=== PATIENT | female | born 1965 | race Caucasian/White ===

== ENCOUNTER 2018-11-07 02:46 | Inpatient (IN) | payer MEDICAID ==
--- NOTE | 2018-11-01 08:17 | NUR ---
CONSULTED DR. CHING REGARDING SUBOXONE MEDICATION, PER DR. CHING, PT NEEDS TO BE OFF SUBOXONE COMPLETELY 72 HOURS PRIOR TO SURGERY DATE OF Wednesday11/07/18, I HAVE BEEN IN CONTACT WITH [facility] AND HAVE LEFT A VOICEMAIL FOR [facility] IN [place] WHO IS IN CHARGE OF THE PATIENTS SUBOXONE PRESCRIPTION. WAITING ON A RESPONSE AND THEN WILL CALL [facility] BACK AND GET IN CONTACT WITH THE PT IN REGARDS TO APPROPRIATE INSTRUCTIONS
--- NOTE | 2018-11-01 08:22 | NUR ---
SPOKE WITH RINA FROM [facility], PT WAS INSTRUCTED TO GET IN CONTACT WITH PROVIDER REGARDING SUBOXONE, AGREED TO LET [facility] INITIATE INSTRUCTIONS ON TAPERING/STOPPING SUBOXONE PRIOR TO SURGERY, [facility] UNSURE IF PT IS CLEARED FOR SURGERY, WILL CONTINUE TO BE IN CONTACT WITH LYNNE AT [facility]
--- NOTE | 2018-11-01 15:18 | NUR ---
CONTACTED DR. COLON AT [facility] IN [place], HE ADVISES THAT THE PT TO CONTINUE THE SUBOXONE, INFORMED HIM THAT I FEEL HE SHOULD SPEAK WITH THE ANESTHESIOLOGIST AND GAVE HIM DR. YATES'S CONTACT INFORMATION, SPOKE WITH DR. YATES WHO SPOKE WITH DR. SIMMONS, THEY CAME TO AGREEMENT THAT PT WAS TO CONTINUE SUBOXONE. CONTACTED LYNNE AT & AND DISCUSSED THIS AND LYNNE WAS INFORMED PT WILL CONTINUE SUBOXONE. 1524- ATTEMPTED TO CONTACT PT TO UPDATE HER ON CHANGES, PT DID NOT ANSWER AND NO VM IS SET UP, WILL CONTINUE TO TRY AND ASKED LYNNE FROM & TO ATTEMPT CONTACTING HER PER THIS MEDICATION CHANGE.
--- NOTE | 2018-11-01 16:15 | NUR ---
1615- SPOKE WITH PT, PT SPOKE WITH DR. VILLASEÑOR AND WILL CONTINUE SUBOXONE PER HIS INSTRUCTIONS, PT VERBALIZED UNDERSTANDING, ALSO ADVISED PT TO TAKE 1ST DOSE OF GABAPENTIN MORNING OF SURGERY SHE REFUSES TO TAKE LYRICA, PT INQUIRES ABOUT A SHEET SORTER PUMP; ADVISED PT TO SPEAK WITH DR. CAUSEY ON WEDNESDAY REGARDING PAIN MANAGEMENT WHILE IN THE HOSPITAL. PT VERBALIZED UNDERSTANDING.
--- NOTE | 2018-11-01 16:20 | NUR ---
1561- PT ALSO VERBALIZED FINANCIAL DIFFICULTIES AND THE POTENTIAL TO CANCER OR RESCHEDULE SURGERY, ADVISED PT TO CONTACT DR. CAUSEY'S OFFICE IN REGARDS TO THAT SPOKE WITH LYNNE AT [facility] AND UPDATE THAT I MADE CONTACT WITH LYNNE THE PT.
--- NOTE | 2018-11-01 16:22 | NUR ---
WAS ADVISED TO BE AWARE OF OPEN NONHEALING WOUNDS TO PT'S BILATERAL FEET, WILL MAKE NOTE ON CHART FOR PREOP NURSES TO ASSESS
[2018-11-06 15:13] LABS: PLATELET COUNT, AUTOMATED 263 K/uL (150-450)
[2018-11-06 15:23] LABS: INR 0.86
[~2018-11-07] VITALS: Ht 170.2 cm; Wt 102.5 kg
[2018-11-07] VITALS (13 sets, daily range): BP systolic 124–160; BP diastolic 68–82
[~2018-11-07 02:46] MED LIST: ALBU8.5H IH; ASPI-1471 PO; BUPR1FIL SL; BUSP15TA69 PO; CYCL10TA29 PO; DULO60CA56 PO; FLUT16SP19 NS; GABA-549 PO; INSU100I28 SQ; INSU100I30 SQ; ONDA-2 PO; PANT40TA65 PO; PRAZ2CAP26 PO; SIMV-54 PO; TRAZ100T31 PO
[2018-11-07] MEDS ORDERED: fentaNYL CITR 250 MCG/5 ML AMP ONE (08:26)
[2018-11-07] MEDS ORDERED: ONDANSETRON 4 MG/2 ML VIAL ONE (08:33)
[2018-11-07] MEDS ORDERED: LIDOCAINE MPF 1% 5 ML VIAL ONE (08:33)
[2018-11-07] MEDS ORDERED: PROPOFOL(*)1000 MG/100 ML VIAL 100 ML ONE (08:37)
[2018-11-07] MEDS ORDERED: REMIFENTANIL HCL 1 MG VIAL ONE ×2 (08:38→13:08)
[2018-11-07] MEDS ORDERED: NS 0.9% 20 ML SDV 20 ML ONE (08:48)
[2018-11-07] MEDS ORDERED: THROMBIN (BOVINE) 20,000 UNIT VIAL ONE (09:36)
[2018-11-07] MEDS ORDERED: CLINDAMYCIN(*) 900 MG/NS 50 ML 50 ML IVPB ONE (09:55)
[2018-11-07] MEDS ORDERED: LIDOCAINE/SOD BICARB 8.4% SYR ID ONE (09:55)
[2018-11-07] MEDS ORDERED: MIDAZOLAM 2 MG/2 ML VIAL IVP PRN (09:55)
[2018-11-07] MEDS ORDERED: NORMOSOL R SOLN(*) 1000 ML BAG 1,000 ML IV PRN (09:55)
[2018-11-07] MEDS ORDERED: NS(*) 0.9% 500 ML BAG 500 ML ONE (10:12)
[2018-11-07] MEDS ORDERED: KETAMINE HCL 200 MG/20 ML MDV ONE (10:58)
[2018-11-07] MEDS ORDERED: ACETAMINOPHEN(*)1000 MG/100 ML 100 ML IVPB ONE (11:36)
[2018-11-07] MEDS ORDERED: PROPOFOL EMUL(*) 10MG/ML 20 ML 20 ML ONE ×2 (11:57→13:32)
[2018-11-07] MEDS ORDERED: HYDROmorphone HCL 2 MG/ML SDV ONE (12:01)
[2018-11-07] MEDS ORDERED: ePHEDrine 25 MG/5 ML DISP.SYR IVP ONE (12:01)
[2018-11-07] MEDS ORDERED: PROPOFOL EMUL(*) 10MG/ML 20 ML 40 ML ONE (12:45)
[2018-11-07] MEDS ORDERED: LABETALOL HCL 20 MG/4 ML SYR ONE (13:02)
--- NOTE | 2018-11-07 13:50 | RADIOLOGY IMAGING REPORT ---
FACILITY: [facility] [place] PATIENT NAME: Ailyn Olmedo : 1965 MR: [id number] V: [id number] EXAM DATE: ORDERING PHYSICIAN: JACKIE CAUSEY TECHNOLOGIST: [place] [facility] [place]n Olmedo : 1965 Visit/Account:[id number] Date of Sevice: 11/07/2018 CERVICAL SPINE 2 OR 3 VIEW Indication: C5-7 DISC HERNIATION/FUSION Comparison: None. Findings: Intraoperative images are available, with instrumentation hardware at the level of the C5-6 cervical disc level. IMPRESSION: Intraoperative images from surgery at the C5-6 level. Report Dictated By: Jacinto Potts at 11/07/2018 1:44 PM Report E-Signed By: Jacinto Potts at 11/07/2018 1:44 PM WSN:[email or web address]
[2018-11-07] MEDS ORDERED: ONDANSETRON 4 MG/2 ML VIAL IVP PRN (14:15)
[2018-11-07] MEDS ORDERED: HYDROmorphone HCL 2 MG/ML SDV IVP PRN (14:15)
[2018-11-07] MEDS ORDERED: ACETAMINOPHEN 500 MG TAB PO PRN (14:15)
[2018-11-07] MEDS ORDERED: BENZOCAINE/MENTHOL 1 EACH LOZG PO PRN (14:15)
[2018-11-07] MEDS ORDERED: BISACODYL 10 MG SUPP PR PRN (14:15)
[2018-11-07] MEDS ORDERED: FLUSH 10 ML SYR IVP PRN (14:15)
[2018-11-07] MEDS ORDERED: LR(*) 1000 ML BAG 1,000 ML IV PRN (14:15)
[2018-11-07] MEDS ORDERED: ACETAMINOPHEN(*)1000 MG/100 ML 100 ML IVPB PRN (14:15)
[2018-11-07] MEDS ORDERED: diphenhydrAMINE 25 MG CAP PO PRN (14:15)
[2018-11-07] MEDS ORDERED: APAP/HYDROCODONE 325/5 TAB PO PRN (14:15)
[2018-11-07] MEDS ORDERED: MAGNESIUM HYDROXIDE* 30ML UDCP PO PRN (14:15)
[2018-11-07] MEDS ORDERED: fentaNYL CITR 100 MCG/2 ML AMP ONE (14:18)
[2018-11-07] MEDS: oxyCODONE HCL 5 MG CAP PO PRN ×4 (16:23→23:58)
--- NOTE | 2018-11-07 16:56 | NUR ---
Physical Therapy Impression PT eval complete. Pt able to perform supine>sit with HOB completely elevated and SBA. [facility] with CGA. Physical Therapy Goals 1. Mod I bed mobility via log roll. 2. Mod I transfers. 3. Mod I gait x 150' with appropriate assistive device. 4. Ascend/descend 4 stairs and single rail CGA. Patient's Goals
[2018-11-07] MEDS: CLINDAMYCIN(*) 900 MG/NS 50 ML 50 ML IVPB SCH (19:47)
[2018-11-07] MEDS: DIAZEPAM 5 MG TAB PO PRN (19:48)
[2018-11-07] MEDS ORDERED: ALBUTEROL 2.5 MG/3 ML NEB NEB PRN (19:50)
[2018-11-07] MEDS ORDERED: traZODone HCL 50 MG TAB PO PRN (19:50)
--- NOTE | 2018-11-07 20:11 | Hospitalist Consultation ---
History of Present Illness Requesting Physician Dr Cruz Reason for Consult Medical management of comorbidities Chief Complaint cervical radiculopathy History of Present Illness 52F admitted after c-spine surgery. Tolerated the procedure well. PMHx significant for chronic pain, depression, DM. History Unable To Obtain Past Medical: as per HPI Home Meds Reported Medications Fluticasone Prop 50 Mcg Ns (FLONASE 50 MCG NS) 16 Gm Ensign.susp, 1 SPRAY NS BID, BOT 10/31/18 Insulin Lispro 100 Un/Ml Pen (HUMALOG 3 ML PEN) 100 Unit/1 Ml Insuln.pen, 100 UNIT SQ, DIS.SYR 10/31/18 Insulin Glargine 100 Un/Ml Pen (LANTUS SOLOSTAR PEN) 100 Unit/1 Ml Insuln.pen, 30 UNIT SQ QAM, PEN 10/31/18 Albuterol Sulfate 90 Mcg/Act (PROAIR HFA 90 MCG/ACT) 8.5 Gm Hfa.aer.ad, 1-2 PUFF IH PRN, INHALER 10/31/18 Buprenorphine Hcl/Naloxone Hcl (SUBOXONE 4 MG-1 MG SL FILM) 1 Each Film, 1 EACH SL QID PRN for PAIN, FILM 10/31/18 Pantoprazole Sodium (PANTOPRAZOLE SODIUM) 40 Mg Tablet.dr, 40 MG PO QDAY, TAB.SR 10/31/18 Aspirin (ASPIR 81) 81 Mg Tablet.dr, 81 MG PO QDAY, TAB 10/31/18 Prazosin Hcl (PRAZOSIN HCL) 2 Mg Capsule, 2 MG PO QHS, CAPSULE 10/31/18 Gabapentin (GABAPENTIN) 300 Mg Capsule, 1200 MG PO QID, CAPSULE 10/31/18 Simvastatin (SIMVASTATIN) 40 Mg Tablet, 2 TAB PO HS, TAB 10/31/18 Duloxetine Hcl (CYMBALTA) 60 Mg Capsule.dr, 60 MG PO BID, #10 CAP 10/31/18 Trazodone Hcl (TRAZODONE HCL) 100 Mg Tablet, 100 MG PO QHS PRN for SLEEP, TAB 10/31/18 Buspirone Hcl (BUSPIRONE HCL) 15 Mg Tablet, 15 MG PO BID, #10 TAB 10/31/18 Ondansetron Hcl (ONDANSETRON HCL) 4 Mg Tablet, 4 MG PO Q6H PRN for NAUSEA, TAB 10/31/18 Cyclobenzaprine Hcl (CYCLOBENZAPRINE HCL) 10 Mg Tablet, 10 MG PO Q8H, #9 TAB 10/31/18 Allergies: Coded Allergies: Penicillins (Verified Allergy, Severe, AIRWAY OBSTRUCTION, 10/31/18) orphenadrine (Verified Allergy, Severe, HALLUCINATIONS, 10/31/18) Iodinated Contrast- Oral and IV Dye (Verified Allergy, Intermediate, AI RWAY OBSTRUCTION, 10/31/18) RASH meperidine (Verified Allergy, Intermediate, NAUSEA/VOMITING, 10/31/18) oxycodone (Verified Allergy, Intermediate, RASH, 10/31/18) Patient History: FH: brain tumor CHILD FH: breast cancer MATERNAL AUNT FH: cancer BROTHER OR SISTER FH: depression FATHER MOTHER FH: diabetes mellitus FATHER MOTHER FH: factor V Leiden mutation BROTHER OR SISTER FH: heart attack FATHER MOTHER BROTHER OR SISTER FH: prostate cancer BROTHER OR SISTER Thyroid cancer BROTHER OR SISTER Hx Smoking: Yes Smoking Status: Current: Every Day Smoker, Heavy Tobacco Smoker Caffeine Intake: Tea Caffeine/Cups Per Day: 5CPD Hx Alcohol Use: No Hx Substance Use Disorder: No Social Drug Use: Never History of IV Drug Use: No Review of Systems All Systems Reviewed/Normal: Yes, Except as Noted Musculoskeletal: Pain Exam Vital Signs Vital Signs Date Time Temp Pulse Resp B/P (MAP) Pulse Ox O2 Delivery O2 Flow Rate FiO2 11/07/18 17:29 93 Nasal Cannula 2.0 11/07/18 15:30 82 14 11/07/18 15:30 98.7 11/07/18 09:48 124/69 (87) General Appearance: Awake, No Acute Distress, Afebrile Neuro: No Gross deficits Cardiovascular: Normal Rhythm & Peripheral Pulses Respiratory: No Respiratory Distress GI: Abd Soft and Non-Tender Musculoskeletal: Other (chronic upper extremity and L sided weakness.) Extremities: Soft and Non Tender, Warm, Pulses, Perfused; No Edema Integumentary: Skin Intact without Lesion / Mass (post operative dressing) Medical Decision Making Data Points Result Diagram: 11/06/18 1500 Assessment and Plan Problems: (1) Cervical radiculopathy Assessment & Plan: Tolerated surgery well, management per ortho Dr Cruz. (2) DM (diabetes mellitus) Assessment & Plan: Will continue patients Lantus and cover with SSI. Accuchecks achs. (3) Chronic pain Assessment & Plan: On chronic treatment with cyclobenzaprine, Suboxone film both held given acute pain control. Gabapentin dose was above usual and maximum daily dose, decreased to 900mg TID to avoid withdrawal. (4) Depression Assessment & Plan: Buspar, trazadone continued. Prazosin for nightmares continued. Venous Thromboembolism Antithrombotics Is Pt On Any Antithrombotics?: No (early ambulation) Exam Sepsis Risk: No Definite Risk MONTEIRO SHANTA WISE DO Nov 07, 2018 20:01
[2018-11-07] MEDS ORDERED: SIMVASTATIN 40 MG TAB PO SCH (21:00)
[2018-11-07] MEDS ORDERED: GABAPENTIN 300 MG CAP PO SCH (21:00)
[2018-11-07] MEDS ORDERED: PRAZOSIN HCL 1 MG CAP PO SCH (21:00)
[2018-11-07] MEDS: DOCUSATE SODIUM 100 MG CAP PO SCH (21:25)
[2018-11-07] MEDS: DULoxetine HCL 30 MG CAPCR PO SCH (21:25)
[2018-11-07] MEDS: busPIRone HCL 5 MG TAB PO SCH (21:25)
--- NOTE | 2018-11-07 23:45 | OPERATIVE REPORT 1 ---
EVENT DATE: November 07, 2018 SURGEON: Louis Evans MD ANESTHESIOLOGIST: Juan Carlos Chahal MD ANESTHESIA: General endotracheal anesthesia. 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 PROCEDURE PERFORMED C5-C6 anterior cervical discectomy and fusion. INTRAVENOUS FLUIDS 1400 mL. ESTIMATED BLOOD LOSS 30 mL. IMPLANTS A 7 mm lordotic size-small titanium interbody implant from [employer], and 3.5 mm x 14 mm fixation screws, also from [employer]. DRAINS A 10-Faroese round Glenroy-Kaminski drain through the neck. SPECIMENS None. COMPLICATIONS There was a loss of subcortical SSEPs in the right upper extremity, which caused us to abort the second portion of the case, which was to be a C6-C7 anterior cervical discectomy and fusion. The decision was made at about the time that the implant was about to be placed at C5-C6, and all leads were checked. The arm was repositioned, the traction was released, and the SSEPs still did not return. There were no changes in motors, but we elected to complete the fusion at C5-C6 and forgo the fusion at C6-C7 so that we could reassess the patient in an awake state. DISPOSITION Postanesthesia care unit. INDICATIONS FOR SURGERY Ms. Olmedo is a 52-year-old female who had multiple medical problems and who presented to my clinic with a complaint of right greater than left upper extremity pain, numbness and tingling as well as difficulty with dropping objects and other fine motor skills issues, such as trouble with buttoning buttons and walking with a wide-based gait. Her physical examination at the time of my encounter with her revealed positive Romberg, inability to perform tandem gait testing secondary to instability, and a broad-based shuffling gait. She had Spurling maneuver positive to the right as well as to the left, giving symptoms into the biceps and triceps on the right, and more the biceps on the left. She had weakness in the triceps on the right, but otherwise was strong. Deep tendon reflexes were hyperactive, and she had a positive Catherine sign on the left, negative on the right. Her imaging studies showed severe canal narrowing at C5-C6 secondary to a large broad-based disc bulge compressing the cord and narrowing bilateral foramina. At C6-C7, there was not really much in the way of cord compression, but rather just broad-based disc bulging causing right greater than left foraminal narrowing. I had a long discussion with Ms. Olmedo regarding her symptoms and the concern about her myelopathy. I explained to her that given the fact that she has been diagnosed with diabetic neuropathy in upper and lower extremities, some of the numbness and tingling she has may not improve, but that the radicular- type symptoms should improve. We discussed the fact that decompressing her cord may very well give her some improved function in terms of her balance and fine motor skills, but that spinal surgery is more aimed at preventing the progression of her myelopathy than actually reversing its course. Prior to surgery, we also discussed potential risks of surgery, including bleeding, infection, damage to surrounding structures, difficulty with swallowing and need for tube feeding, voice changes and hoarseness, spinal cord injury, nerve root injury, spinal fluid leak, meningitis, , blindness, sexual dysfunction, autonomic nervous system dysfunction, need for further surgery, persistent and/or worsening pain, and other unforeseen medical and surgical complications. She voiced an understanding. DESCRIPTION OF PROCEDURE On the day of surgery, the patient was met in the preoperative hold area and all questions were answered. The operative site was identified and marked by myself. The patient was brought in good condition to the operating room, and after succumbing to anesthesia was positioned in the supine position on a standard OR bed. Care was taken to maintain appropriate perfusion pressures during anesthesia, and an arterial line was placed to facilitate this. Preoperative antibiotics were administered according to the appropriate timing schedule. At the conclusion of the procedure, sponge and needle counts were correct x2. The arms were loosely secured at the side with gel wraps around the elbows to afford access to the anterior cervical spine. The patient was prepped and draped in the standard sterile orthopedic fashion, and after a final time-out was undertaken by members of the operating team to confirm correct patient, correct levels, and correct surgery, a transverse incision was made overlying the intended surgical levels. Sharp dissection was carried out to the platysma, which was divided. Blunt finger dissection was carried out medial to the carotid sheath, coming down onto the anterior aspect of the cervical spine. Soft tissues including the longus colli muscles were elevated off the anterior cervical spine in a subperiosteal manner. A self-retaining retractor was placed and distracted, and a lateral radiograph was obtained to confirm appropriate spinal levels. At the C5-C6 level, we incised the anterior annulus with a #15 blade and then used progressively smaller curettes to remove the disc out to the width of the uncovertebral joints bilaterally until we reached the posterior annulus. A Cloward filler spreader was placed and distracted, and this put the annulus as well as the posterior longitudinal ligament on tension. I was able to remove multiple large loose disc fragments from between the annulus and the posterior longitudinal ligament. We then dissected carefully through the PLL using a forward-angled curette, and then took the PLL down using a #1 and #2 Kerrison punch. Bilateral foraminotomies were performed using the Kerrison punch, and a nerve hook was passed out the foramina bilaterally, ensuring adequate decompression of the nerve roots as they exited. The nerve root was also swept posterior to the vertebral bodies, ensuring adequate decompression of the spinal cord itself. Once I was satisfied with the decompression, we proceeded with the fusion portion of the procedure. The endplates of the vertebral body at C5 and C6 were decorticated with a high-speed bur. We then were notified by the neurophysiologist that there had been a drop in the subcortical SSEPs on the right side. Motor evoked potentials were normal. Given the fact that there was no correctable maneuver that occurred prior to the loss of the SSEPs, we repositioned the arm, relieved the traction from that right upper extremity, and checked all leads. There was no real change, and therefore, secondary to the loss of those SSEPs, it was elected to complete the fusion procedure at the C5-C6 level, but abort the fusion at C6-C7, so that we could wake the patient up and evaluate her full neurologic function. I therefore used a 7 mm rasp at C5-C6, and that fit nicely, so we selected a 7 mm, 6-degree lordotic interbody implant and inserted it into the interbody space. It was recessed approximately 0.5 mm, and we then used the awl through the integrated holes to penetrate the endplates above and below. 3.5 mm x 14 mm fixation screws were placed through the device and into the endplates of C5 and C6. Meticulous hemostasis was obtained, and a lateral radiograph was obtained, confirming appropriate positioning of the implant. There were no further changes in neurophysiologic monitoring after placement of the implant. The wound was then irrigated with copious sterile saline solution and closed in layers using interrupted sutures for the platysma, inverted interrupted sutures for the subcutaneous tissue, and then a running subcuticular skin stitch. Sponge and needle counts were correct x2. POSTOPERATIVE CARE PLAN We will carefully follow Ms. Olmedo's neurologic exam postoperatively. We will reassess moving forward in time as to whether we need to return to the operating room at some point to take care of the C6-C7 level. This will depend on her neurologic status, whether her radiculopathy improves, et cetera. She will be discharged from the hospital once she meets criteria, and will follow up in my clinic in two weeks for reevaluation. TOYA
[2018-11-08 03:16] VITALS: BP 134/67
[2018-11-08] MEDS: DIAZEPAM 5 MG TAB PO PRN (03:26)
[2018-11-08] MEDS: CLINDAMYCIN(*) 900 MG/NS 50 ML 50 ML IVPB SCH ×2 (03:26→12:09)
[2018-11-08 07:30] VITALS: BP 143/76
[2018-11-08] MEDS: oxyCODONE HCL 5 MG CAP PO PRN ×2 (08:38→12:13)
[2018-11-08] MEDS ORDERED: INSULIN GLARGINE 100 U/ML 3 ML PEN SUBQ SCH (09:00)
[2018-11-08] MEDS ORDERED: ASPIRIN 81 MG ENTERIC COATED PO SCH (09:00)
[2018-11-08] MEDS ORDERED: PANTOPRAZOLE SOD 40 MG TABEC PO SCH (09:00)
[2018-11-08] MEDS ORDERED: FLUTICASONE PROP 0.05% 16 GM SCH (09:00)
--- NOTE | 2018-11-08 09:31 | RADIOLOGY IMAGING REPORT ---
FACILITY: [facility] [place] PATIENT NAME: Ailyn Olmedo : 1965 MR: [id number] V: [id number] EXAM DATE: ORDERING PHYSICIAN: JACKIE CAUSEY TECHNOLOGIST: Location: [facility] [place] Patient: Ailyn Olmedo : 1965 Visit/Account:[id number] Date of Sevice: 11/08/2018 CERVICAL SPINE 2 OR 3 VIEW HISTORY: Postop neck pain COMPARISON: 11/07/2018. FINDINGS: 2 views of the cervical spine were obtained. C1-C7 are seen on lateral film. There is no e vidence of acute fracture or spondylolisthesis. The vertebral body heights are well maintained. The pre dental space is normal. The lateral masses are well aligned. The dens is intact. C5-C6 disc blood rdware, unchanged in alignment. IMPRESSION: 1. Stable postoperative changes at C5-C6 Report Dictated By: Thom Hogan MD at 11/08/2018 9:20 AM Report E-Signed By: Thom Hogan MD at 11/08/2018 9:26 AM WSN:[email or web address]
--- NOTE | 2018-11-08 09:32 | RADIOLOGY IMAGING REPORT ---
FACILITY: [facility] PATIENT NAME: Ailyn Olmedo : 1965 MR: [id number] V: [id number] EXAM DATE: ORDERING PHYSICIAN: MONI NELSON TECHNOLOGIST: Location: [facility] [place] Patient: Ailyn Olmedo : 1965 Visit/Account:[id number] Date of Sevice: 11/08/2018 KNEE 3 VIEW RIGHT HISTORY: Fall COMPARISON: None FINDINGS: Right knee: No acute fracture or dislocation. Mild degenerative changes at the medial joint space an d patellofemoral joint. No evidence of AVN. Small joint effusion. No loose body. IMPRESSION: 1. No acute osseous abnormality. 2. Mild degenerative changes at the patellofemoral joint. 3. Small joint effusion. Report Dictated By: Thom Hogan MD at 11/08/2018 9:26 AM Report E-Signed By: Thom Hogan MD at 11/08/2018 9:27 AM WSN:[email or web address]
[2018-11-08] MEDS: DOCUSATE SODIUM 100 MG CAP PO SCH (09:58)
[2018-11-08] MEDS: busPIRone HCL 5 MG TAB PO SCH (09:58)
[2018-11-08] MEDS: DULoxetine HCL 30 MG CAPCR PO SCH (09:59)
[2018-11-08] MEDS ORDERED: GABAPENTIN 300 MG CAP PO ONE (11:00)
--- NOTE | 2018-11-08 11:19 | Hospitalist Progress Note ---
Subjective Progress Notes Subjective She was admitted s/p neck surgery. She has complaints of knee pain, she sustained from fall prior to surgery. She reports she is going to check into the ER once she got discharged to have it evaluated. She states she tripped on an ice chunk in her driveway three days ago. She denies difficulty walking on her knee. Patient Complains of: Cardiovascular: No: Chest Pain Respiratory: No: Shortness of Breath Musculoskeletal: Pain (right knee) Physical Exam Vital Signs Date Time Temp Pulse Resp B/P (MAP) Pulse Ox O2 Delivery O2 Flow Rate FiO2 11/08/18 07:30 98.4 78 12 143/76 (98) 97 Nasal Cannula 4.0 Intake and Output 11/08/18 00:00 Intake Total 2200 ml Output Total 25 ml Balance 2175 ml Intake Oral 300 ml IV Total 1900 ml Output Drainage Total 25 ml # Voids 3 General Appearance: Alert, Awake, No Acute Distress, Afebrile Neuro: No Gross deficits Cardiovascular: Regular Rate and Rhythm Respiratory: No Respiratory Distress, Clear to Auscultation GI: Soft and Non-Tender Musculoskeletal: Other (right knee pain has minor swelling, no bruises) Extremities: Warm, Perfused; No Edema Psych: Alert & Oriented X3, Appropriate Mood & Affect Result Diagram: 11/06/18 1500 Assessment and Plan Problems: (1) Cervical radiculopathy Assessment & Plan: Tolerated surgery well, management per ortho Dr Cruz. (2) Knee pain, acute Status: Acute Assessment & Plan: She had fall prior to admission at home. Right knee x-ray performed, shows small joint effusion. She does have mild degenerative changes, but no acute injury or fracture. She will continue compression and ice as needed for injury. (3) DM (diabetes mellitus) Assessment & Plan: Will continue patients Lantus and cover with SSI. Accuchecks achs. (4) Chronic pain Assessment & Plan: On chronic treatment with cyclobenzaprine, Suboxone film both held given acute pain control. Continue Gabapentin at usual dose. (5) Depression Assessment & Plan: Buspar, trazadone continued. Prazosin for nightmares continued. Exam Sepsis Risk: No Definite Risk Problem Qualifiers (1) Knee pain, acute: Laterality: right Qualified Codes: M25.561 - Pain in right knee MONI NELSON ANALYTICAL TECH Nov 08, 2018 11:19
[2018-11-08 12:58] VITALS: BP 158/76
[2018-11-08] MEDS ORDERED: GABAPENTIN 300 MG CAP PO SCH (13:00)
--- NOTE | 2018-11-08 13:44 | NUR ---
Physical Therapy Impression The pt has met PT goals and is safe to d/c home from a mobility stand point when medically appropriate. PT instructed pt in stair negotiation with railing and pt completed with SBA and good tolerance. Rec that pt utilize RW for mobility upon d/c, she is agreeable. SpO2 WNL on 1L throughout session. Physical Therapy Goals 1. Mod I bed mobility via log roll. 2. Mod I transfers. 3. Mod I gait x 150' with appropriate assistive device. 4. Ascend/descend 4 stairs and single rail CGA. Patient's Goals
[2018-11-08 14:23] VITALS: Ht 170.2 cm; Wt 102.5 kg
[2018-11-08] MEDS ORDERED: DOCU240C84 PO (14:42)
[2018-11-08] MEDS ORDERED: LOR5/325 PO (14:43)
== END 2018-11-08 16:05 | disposition home or self-care (01) | DRG 473 ==
LOC: OR 02:46 → MED 15:30
PROVIDERS: ADMIT Orthopaedic Surgery; ATTEND Orthopaedic Surgery
PROC: 0RT30ZZ Resection of Cervical Vertebral Disc, Open Approach (ICD-10-PCS; 2018-11-07)
PROC: 01N10ZZ Release Cervical Nerve, Open Approach (ICD-10-PCS; 2018-11-07)
PROC: 0RG10A0 Fusion of Cervical Vertebral Joint with Interbody Fusion Device, Anterior Approach, Anterior Column, Open Approach (ICD-10-PCS; principal; 2018-11-07 11:12)
DX: M50.022 Cervical disc disorder at C5-C6 level with myelopathy (principal); M43.12 Spondylolisthesis, cervical region; F17.210 Nicotine dependence, cigarettes, uncomplicated; E11.9 Type 2 diabetes mellitus without complications; G89.29 Other chronic pain; F32.9 Major depressive disorder, single episode, unspecified; M25.561 Pain in right knee; W18.30XA Fall on same level, unspecified, initial encounter; Z88.0 Allergy status to penicillin; Z88.8 Allergy status to other drugs, medicaments and biological substances; Z79.4 Long term (current) use of insulin
CPT/HCPCS: 36415; 36416; 72020; 72040; 81025; 82948; 85025; 85610; 86850; 86900; 86901; 95940; 97162; C1713; J0131; J1170; J1815; J2001; J2250; J2405; J2704; J3010; J3490; J7040; J7050